=== PATIENT | female | born 1970 | race American Indian/Alaskan Native ===

== ENCOUNTER 2017-09-22 11:56 | Emergency (ER) | payer OTHER ==
[2017-09-22 12:02] VITALS: BP 135/79; PULSE 92; RESP 18; TEMP 97.9; O2SAT 100
--- NOTE | 2017-09-22 12:47 | C.PDOC ---
History Of Present Illness Patient presents to ED c/o right thigh pain and swelling after a fall at work. She states she was standing on a chair, and when she stepped down and accidentally put her foot on an item that rools, causing her to fall down and hit her right upper leg/thigh on the ground. She denies head injury, LOC, other injuries, sensory changes. Time Seen by Provider: 09/22/17 12:04 Chief Complaint (Nursing): Lower Extremity Problem/Injury History Per: Patient History/Exam Limitations: no limitations Onset/Duration Of Symptoms: Hrs (1) Current Symptoms Are (Timing): Still Present Severity: Moderate Past Medical History Reviewed: Historical Data, Nursing Documentation, Vital Signs Vital Signs: Last Vital Signs Temp 97.9 F 09/22/17 12:02 Pulse 92 H 09/22/17 12:02 Resp 18 09/22/17 12:02 BP 135/79 09/22/17 12:02 Pulse Ox 100 09/22/17 12:47 - Medical History PMH: HTN Family History: States: No Known Family Hx - Social History Hx Alcohol Use: No Hx Substance Use: No - Immunization History Hx Tetanus Toxoid Vaccination: No Hx Influenza Vaccination: No Hx Pneumococcal Vaccination: No Review Of Systems Constitutional: Negative for: Fever Cardiovascular: Negative for: Chest Pain Respiratory: Negative for: Shortness of Breath Musculoskeletal: Positive for: Leg Pain (right thigh/upper leg pain ) Skin: Negative for: Rash Neurological: Negative for: Weakness, Numbness, Headache, Dizziness Physical Exam - Physical Exam Appears: Well, Non-toxic, In Acute Distress (in mild pain ) Skin: Warm, Dry, Other (see extremity exam ) Eye(s): bilateral: Normal Inspection Oral Mucosa: Moist Cardiovascular: Rhythm Regular Respiratory: Normal Breath Sounds, No Rales, No Rhonchi, No Wheezing Extremity: Tenderness (right lateral thigh ecchymosis/contusion (approx 5-6cm in length), (+) TTP, no deformity ), No Calf Tenderness, Capillary Refill (< 2 sec all digits ), Deformity (< 2 sec all digits ) Extremity: Bilateral: Normal ROM Pulses: Left Dorsalis Pedis: Normal, Right Dorsalis Pedis: Normal Neurological/Psych: Oriented x3, Normal Sensation Gait: Steady ED Course And Treatment O2 Sat by Pulse Oximetry: 100 (RA) Pulse Ox Interpretation: Normal Progress Note: Patient given PO tylenol and ice applied to contusion. Xray of right femur ordered and reviewed. Reevaluation Time: 12:50 Reassessment Condition: Improved (Patient reassessed, is resting comfortably. Xray neg for acute bony injury. Patient reassurred, Rx for tylenol and work note given. She was instructed to follow up with PMD/clinic in 1-2 days, and understands she should return to ED if symptoms worsen.) Disposition Counseled Patient/Family Regarding: Studies Performed, Diagnosis, Need For Followup, Rx Given - Disposition Referrals: Kim Leal MD [Medical Doctor] - Disposition: HOME/ ROUTINE Disposition Time: 12:50 Condition: STABLE Additional Instructions: FOLLOW UP WITH YOUR DOCTOR IN 1-2 DAYS USE IBUPROFEN OR TYLENOL NEEDED APPLY ICE TO AREA SEVERAL TIMES DAILY IN THE FIRST 24 HOURS RETURN TO ER IF SYMPTOMS WORSEN Prescriptions: Acetaminophen [Tylenol 325mg tab] 650 mg PO Q6 PRN #30 tab PRN Reason: pain/fever Instructions: Contusion (DC) Forms: [facility] (Bulgarian), Work Excuse Print Language: ITALIAN - POA Present On Arrival: Falls Or Trauma - Clinical Impression Clinical Impression: Contusion of right thigh, Traumatic ecchymosis of right thigh
--- NOTE | 2017-09-22 15:28 | RAD ---
PROCEDURE: Right Femur Radiographs. HISTORY: Pain, fall COMPARISON: None. TECHNIQUE: AP and Lateral Radiographs of the right femur. FINDINGS: FEMUR: Bone alignment and mineralization are normal. There is no acute displaced fracture or bone destruction. SOFT TISSUES: Normal. OTHER FINDINGS: An IUD overlies the pelvis. IMPRESSION: No acute fracture or dislocation.
== END 2017-09-22 12:54 | disposition home or self-care (01) ==
LOC: C.ER 11:56
DX: S70.11XA Contusion of right thigh, initial encounter (principal); W07.XXXA Fall from chair, initial encounter; Y92.89 Other specified places as the place of occurrence of the external cause; Y99.0 Civilian activity done for income or pay